=== PATIENT | male | born 1980 | race Caucasian/White ===

== ENCOUNTER 2017-02-24 14:11 | Emergency (ER) | payer SELFPAY ==
[~2017-02-24] VITALS: Ht 170.2 cm; Wt 76.0 kg
[~2017-02-24 14:11] MED LIST: ACYCLOVIR800 MG PO; CLINDAMYCIN150 MG OR; FLEXERIL PO; LORTAB 10-325 M1 TAB PO; LORTAB 5 OR; NO CURRENT MEDS; NO HOME MEDS; ULTRAM50 M1 PO; ULTRAM50 MG OR
[2017-02-24 14:49] LABS: HEMATOCRIT 40.3 % (39.0-50.0); HEMOGLOBIN 13.9 g/dl (14.0-18.0); IMMATURE GRANULOCYTES 0.5 % (0.0-1.0); MEAN CORPUSCULAR HGB 31.4 pG CALC (26.0-32.0); MEAN CORPUSCULAR HGB CONC 34.5 g/L CALC (32.0-36.0); NEUT# 4.69 thou/uL (1.82-7.42); RED BLOOD COUNT 4.43 mill/uL (4.70-6.10); RED CELL DISTRI WIDTH 13.8 % (11.5-15.5)
[2017-02-24 15:02] LABS: ALBUMIN 4.2 g/dL (3.2-5.0); ALKALINE PHOSPHATASE 67 u/l (38-126); ANION GAP 15 (6-22 (CALC)); BILIRUBIN, TOTAL 0.4 mg/dL (0.0-1.4); BUN 10 mg/dL (9-20); BUN/CREATININE RATIO 12 (12-20 (CALC)); CALCIUM 9.1 mg/dL (8.4-10.2); CARBON DIOXIDE 27 mmol/l (22-30); CHLORIDE 104 mmol/l (95-108); CREATININE 0.9 mg/dL (0.7-1.3); GFR > 60 ML/MIN (>=60 (CALC)); GFR FOR AFR.AMER. > 60 ML/MIN (>=60 (CALC)); GLUCOSE 114 mg/dL (75-110); POTASSIUM 4.1 mmol/l (3.5-5.1); SGOT/AST 25 u/l (17-59); SGPT/ALT 45 u/l (21-72); SODIUM 142 mmol/l (137-146); TOTAL PROTEIN 7.2 g/dL (6.3-8.2)
[2017-02-24 15:14] LABS: MYOGLOBIN 19 ng/mL (0 - 121)
[2017-02-24] MEDS ORDERED: RISPERDAL1 M1 PO (15:49)
[2017-02-24] MEDS ORDERED: ASPIRIN 81 LOW81 MG PO (16:06)
[2017-02-24 16:21] VITALS: BP 123/70
== END 2017-02-24 16:40 | disposition left against medical advice (07) | DRG 313 ==
LOC: ED 14:11
PROVIDERS: Emergency Medicine
DX: R07.9 Chest pain, unspecified (principal); N28.1 Cyst of kidney, acquired; R51 Headache; F31.9 Bipolar disorder, unspecified; F17.210 Nicotine dependence, cigarettes, uncomplicated

== ENCOUNTER 2017-12-01 10:34 | Emergency (ER) | payer SELFPAY ==
[~2017-12-01] VITALS: Ht 170.2 cm; Wt 81.4 kg
[~2017-12-01 10:34] MED LIST changes: +ASPIRIN 81 LOW81 MG PO; +RISPERDAL1 M1 PO
[2017-12-01 11:41] LABS: HEMATOCRIT 43.7 % (39.0-50.0); IMMATURE GRANULOCYTES 0.3 % (0.0-1.0); MEAN CELL VOLUME 91.2 fL CALC (80.0-100.0); MEAN CORPUSCULAR HGB 31.3 pG CALC (26.0-32.0); MEAN CORPUSCULAR HGB CONC 34.3 g/L CALC (32.0-36.0); NEUT# 7.86 thou/uL (1.82-7.42); RED BLOOD COUNT 4.79 mill/uL (4.70-6.10); RED CELL DISTRI WIDTH 13.8 % (11.5-15.5)
[2017-12-01 12:42] LABS: URINE BILIRUBIN - DIPSTICK NEGATIVE (NEGATIVE); URINE BLOOD DIPSTICK TRACE-INTACT (NEGATIVE); URINE COLOR YELLOW; URINE GLUCOSE - DIPSTICK NEGATIVE (NEGATIVE); URINE KETONE NEGATIVE (NEGATIVE); URINE LEUK ESTERASE NEGATIVE (NEGATIVE); URINE NITRITE - DIPSTICK NEGATIVE (Negative); URINE PROTEIN - DIPSTICK NEGATIVE (NEG-TRACE); URINE UROBILINOGEN - DIPSTICK 0.2 E.U./dL (0.2)
[2017-12-01 12:47] LABS: URINE CLARITY CLEAR
[2017-12-01 13:21] LABS: ALBUMIN 4.8 g/dL (3.2-5.0); ALKALINE PHOSPHATASE 86 u/l (38-126); ANION GAP 19 (6-22 (CALC)); BILIRUBIN, TOTAL 0.4 mg/dL (0.0-1.4); BUN 13 mg/dL (9-20); BUN/CREATININE RATIO 19 (12-20 (CALC)); CARBON DIOXIDE 20 mmol/l (22-30); CHLORIDE 107 mmol/l (95-108); CREATININE 0.7 mg/dL (0.7-1.3); GFR > 60 ML/MIN (>=60 (CALC)); GFR FOR AFR.AMER. > 60 ML/MIN (>=60 (CALC)); POTASSIUM 4.3 mmol/l (3.5-5.1); SGOT/AST 20 u/l (17-59); SGPT/ALT 39 u/l (21-72); SODIUM 143 mmol/l (137-146); TOTAL PROTEIN 7.8 g/dL (6.3-8.2)
[2017-12-01] MEDS ORDERED: TORADOL PO (15:19)
[2017-12-01] MEDS ORDERED: PERCOCET 5/325M1 TAB PO (15:19)
[2017-12-01 15:40] VITALS: BP 131/83
== END 2017-12-01 15:40 | disposition home or self-care (01) | DRG 730 ==
LOC: ED 10:34
PROVIDERS: Emergency Medicine
DX: N50.82 Scrotal pain (principal); S39.011A Strain of muscle, fascia and tendon of abdomen, initial encounter; X50.0XXA Overexertion from strenuous movement or load, initial encounter; Y93.89 Activity, other specified; Y92.89 Other specified places as the place of occurrence of the external cause
CPT/HCPCS: Q9967

== ENCOUNTER 2018-01-21 16:42 | Emergency (ER) | payer SELFPAY ==
[~2018-01-21] VITALS: Ht 170.2 cm; Wt 84.0 kg
[~2018-01-21 16:42] MED LIST changes: +PERCOCET 5/325M1 TAB PO; +TORADOL PO
[2018-01-21] MEDS ORDERED: PREDNISONE50 MG PO (18:01)
[2018-01-21 19:10] VITALS: BP 132/86
== END 2018-01-21 19:10 | disposition home or self-care (01) | DRG 923 ==
LOC: ED 16:42
DX: T78.1XXA Other adverse food reactions, not elsewhere classified, initial encounter (principal); R05 Cough; Y93.89 Activity, other specified; Y92.22 Religious institution as the place of occurrence of the external cause

== ENCOUNTER 2018-04-26 14:57 | Emergency (ER) | payer SELFPAY ==
[~2018-04-26] VITALS: Ht 170.2 cm; Wt 80.0 kg
[~2018-04-26 14:57] MED LIST changes: +PREDNISONE50 MG PO
[2018-04-26 15:08] VITALS: BP 138/98
[2018-04-26] MEDS ORDERED: CLINDAMYCIN300 M1 PO (15:12)
[2018-04-26] MEDS ORDERED: MENS MULTI VITAMIN & PO (15:16)
== END 2018-04-26 15:20 | disposition home or self-care (01) | DRG 159 ==
LOC: ED 14:57
DX: K08.89 Other specified disorders of teeth and supporting structures (principal); F17.210 Nicotine dependence, cigarettes, uncomplicated

== ENCOUNTER 2019-10-09 07:55 | Emergency (ER) | payer SELFPAY ==
[~2019-10-09] VITALS: Ht 170.2 cm; Wt 72.6 kg
[~2019-10-09 07:55] MED LIST changes: +CLINDAMYCIN300 M1 PO; +MENS MULTI VITAMIN & PO
[2019-10-09] MEDS ORDERED: TAM75CAP PO (08:03)
[2019-10-09 08:21] VITALS: BP 128/83
== END 2019-10-09 08:25 | disposition home or self-care (01) | DRG 153 ==
LOC: ED 07:55
DX: J11.1 Influenza due to unidentified influenza virus with other respiratory manifestations (principal); F17.200 Nicotine dependence, unspecified, uncomplicated

== ENCOUNTER 2020-11-22 12:03 | Emergency (ER) | payer BC ==
[~2020-11-22] VITALS: Ht 170.2 cm; Wt 75.0 kg
[~2020-11-22 12:03] MED LIST changes: +TAM75CAP PO
[2020-11-22 13:45] VITALS: BP 138/72
== END 2020-11-22 13:45 | disposition home or self-care (01) | DRG 866 ==
LOC: ED 12:03
DX: B34.9 Viral infection, unspecified (principal); F17.210 Nicotine dependence, cigarettes, uncomplicated; Z20.822 Contact with and (suspected) exposure to COVID-19

== ENCOUNTER 2022-08-24 06:20 | Emergency (ER) | payer SELFPAY ==
[~2022-08-24] VITALS: Ht 170.2 cm; Wt 72.0 kg
[2022-08-24] MEDS ORDERED: FLOXIN OTIC0.3 % AD (08:47)
[2022-08-24 09:18] VITALS: BP 137/88
== END 2022-08-24 09:37 | disposition home or self-care (01) | DRG 156 ==
LOC: ED 06:20
PROC: 09J Ear, Nose, Sinus, Inspection (ICD-10-PCS; principal; 2022-08-24)
DX: T16.1XXA Foreign body in right ear, initial encounter (principal); F17.200 Nicotine dependence, unspecified, uncomplicated; X58.XXXA Exposure to other specified factors, initial encounter